=== PATIENT | female | born 2000 | race American Indian/Alaskan Native ===

== ENCOUNTER → 2022-06-12 14:37 | Outpatient (CLI) | payer OTHER, MEDICAID, SELFPAY ==
--- NOTE | 2022-06-12 14:42 | DI.US.S_ITS ---
PROCEDURE: US OB <= 14 WK FETUS ADD GEST INDICATIONS: SPOTTING OUTSIDE/PRIOR DATING DATA: Last menstrual period (LMP): 04/18/2022 LMP-based estimated date of delivery (ASH): 01/23/2023 First dating scan (date and location): 06/12/2022 Estimated date of delivery (ASH) from first dating scan: 01/28/2022 The calculations are made using the ASH of 01/23/2023. TECHNIQUE: Real-time scanning was performed of the fetuses and maternal pelvic organs, with image documentation. Endovaginal scanning: Performed for better visualization of the fetuses and maternal adnexal structures. COMPARISON: None. FINDINGS: General: 2 intrauterine gestational sac is seen. Embryo A: Maternal right side. Yolk sac is seen. [place]-rump length measures 1.1 cm. Estimated gestational age is 7 weeks, 1 day. Heart rate: 153 beats per minute. Embryo B: Only gestational sac is seen. No pole or yolk sac is noted. Mean sac diameter is 8 millimeter with estimated gestational age of 5 weeks, 4 days. Heart rate: No heart rate is detected. There is a right-sided perigestational bleed measures 1.3 x 0.4 x 0.6 cm in size. Maternal organs: Left ovary is within normal limits. Possible corpus luteum in right ovary is seen. IMPRESSION: 1. Twin intrauterine gestational sacs. Only 1 fetus and cardiac activity is detected on the current study as described in detail above. Clinical correlation and sonographic follow-up is recommended. 2. Small right perigestational hemorrhage as above. Possible small corpus luteum in right ovary. Sonographic follow-up is recommended. We strive to produce accurate, complete, and clear reports of imaging services. To assist us in improving patient care, this report was composed using standard report templates and voice recognition software. Therefore, it may contain abnormal punctuation, insertions and/or omissions. Occasional wrong-word or sound-alike substitutions may occur. Though we review the report and make efforts to correct it, we do recommend that the report be read carefully in proper context to recognize any text inaccuracies. Dictated by: Joshua Suarez M.D. on 06/13/2022 at 16:26 Approved by: Joshua Suarez M.D. on 06/13/2022 at 16:29
== END ==
PROVIDERS: Referring Provider Obstetrics & Gynecology; Visit Provider Obstetrics & Gynecology
DX: O26.859 Spotting complicating pregnancy, unspecified trimester (principal); O30.001 Twin pregnancy, unspecified number of placenta and unspecified number of amniotic sacs, first trimester; Z3A.01 Less than 8 weeks gestation of pregnancy
CPT/HCPCS: 76801; 76802; 76817

== ENCOUNTER → 2022-07-18 15:28 | Outpatient (CLI) | payer OTHER, MEDICAID, SELFPAY ==
[2022-07-18 16:38] LABS: Add Manual Diff / Slide Review NO; Basophils Absolute Auto 0 /uL (0-100); Basophils Percent Auto 0.3 % (0-2); Eosinophils Absolute Auto 0 /uL (0-450); Eosinophils Percent Auto 0.3 % (2-4); Hematocrit 35.5 % (36-46); Hemoglobin 12.3 g/dL (12.0-16.0); Lymphocytes Absolute Auto 1600 /uL (1100-4500); Lymphocytes Percent Auto 16.4 % (25-40); Mean Corpuscular HGB Conc 34.6 % (30-36); Mean Corpuscular Hemoglobin 30.3 PG (26-34); Mean Corpuscular Volume 87.6 fL (80-100); Monocytes Absolute Auto 500 /uL (0-900); Monocytes Percent Auto 5.5 % (3-14); Neutrophils Absolute Auto 7600 /uL (1500-7000); Neutrophils Percent Auto 77.5 % (50-75); Platelet Count 274 X10^3/uL (150-400); Red Blood Cell Count 4.05 X10^6/uL (4.0-5.2); Red Cell Distribution Width 12.3 % (11.6-14.8); White Blood Cell Count 9.9 X10^3/uL (4.5-11.0)
[2022-07-18 20:46] LABS: Urine N gonorrhoeae NOT DETECTED
[2022-07-18 20:58] LABS: Urine Chlamydia NOT DETECTED
[2022-07-19 10:01] LABS: Varicella IgG Antibody 173 index (Immune >165)
[2022-07-19 15:41] LABS: Hepatitis B Surface Antigen NEGATIVE s/c (NEGATIVE)
[2022-07-19 16:10] LABS: HIV 1 & 2 Ab/Ag 4th Gen Combo NEGATIVE (NEGATIVE); Hep C Virus Ab w/Reflex Quant NEGATIVE s/c (NEGATIVE)
[2022-07-21 08:31] LABS: RPR Screen Non Reactive (Non Reactive)
== END ==
PROVIDERS: Referring Provider Obstetrics & Gynecology; Visit Provider Obstetrics & Gynecology
DX: Z34.01 Encounter for supervision of normal first pregnancy, first trimester (principal); Z11.3 Encounter for screening for infections with a predominantly sexual mode of transmission
CPT/HCPCS: 36415; 80055; 86787; 86803; 86850; 86900; 86901; 87389; 87491; 87591